=== PATIENT | male | born 1990 | race Caucasian/White ===

== ENCOUNTER 2017-01-11 14:25 | Emergency (ER) | payer MEDICAID ==
[2017-01-11] MEDS ORDERED: IBUPROFEN 800 MG TABLET PO ONE (15:27)
--- NOTE | 2017-01-11 15:27 | ER Document Report ---
ED Neck/Back Problem - General Chief Complaint: Back Pain Stated Complaint: BACK,NECK PAIN Time Seen by Provider: 01/11/17 15:02 Mode of Arrival: Ambulatory Information source: Patient Notes: 26-year-old male presents to ED for numbing of his left arm. She has a history of back surgery to his neck for bulging disc states he had some activities done did not have any fusions done states she also has pain in his lower back states he has a 30 pound child that he picked up and down. TRAVEL OUTSIDE OF THE [place] IN LAST 30 DAYS: No - HPI Onset: Last week Where: Home Onset: Cannot confirm Timing: Waxing and waning Quality of pain: Sharp Severity: Moderate Pain Level: 3 Context: Lifting, Turning Recent injury: Possibly Associated symptoms: Numbness/tingling - Numbness to the left arm states she had the same numbness before he had his surgery to his cervical spine. States she is not called his doctor has not followed up with the doctor., Lower back pain, Other - Pain neck Exacerbated by: Movement of neck Relieved by: Nothing Similar symptoms previously: Yes Recently seen / treated by doctor: No - Related Data Allergies/Adverse Reactions: No Known Allergies Allergy (Verified 01/11/17 14:29) Past Medical History - General Information source: Patient - Social History Smoking Status: Current Every Day Smoker Cigarette use (# per day): Yes - Pack per day Chew tobacco use (# tins/day): No Smoking Education Provided: Yes - Less than 2 minute Frequency of alcohol use: None Drug Abuse: Marijuana 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 Lives with: Family Family History: Reviewed & Not Pertinent Patient has suicidal ideation: No Patient has homicidal ideation: No - Past Medical History Cardiac Medical History: Reports: None Pulmonary Medical History: Reports: None EENT Medical History: Reports: None Neurological Medical History: Reports: None Endocrine Medical History: Reports: None Renal/ Medical History: Reports: None GI Medical History: Reports: Hx Diverticulitis Musculoskeltal Medical History: Reports Hx Arthritis, Reports Hx Musculoskeletal Deformity, Reports Hx Musculoskeletal Trauma Skin Medical History: Reports None Psychiatric Medical History: Reports: None Traumatic Medical History: Reports: None Infectious Medical History: Reports: None Past Surgical History: Reports: Hx Appendectomy, Hx Oral Surgery, Hx Orthopedic Surgery - cervical disectomy - Immunizations Immunizations up to date: Yes Hx Diphtheria, Pertussis, Tetanus Vaccination: Yes Review of Systems - Review of Systems Constitutional: No symptoms reported EENT: No symptoms reported Cardiovascular: No symptoms reported Respiratory: No symptoms reported Gastrointestinal: No symptoms reported Genitourinary: No symptoms reported Male Genitourinary: No symptoms reported Musculoskeletal: Back pain, Neck pain Skin: No symptoms reported Hematologic/Lymphatic: No symptoms reported Neurological/Psychological: No symptoms reported -: Yes All other systems reviewed and negative Physical Exam - Vital signs Vitals: Temp Pulse Resp BP Pulse Ox 98.3 F 99 16 132/85 H 98 01/11/17 14:30 01/11/17 14:30 01/11/17 14:30 01/11/17 14:30 01/11/17 14:30 Interpretation: Normal - General General appearance: Appears well, Alert - HEENT Head: Normocephalic, Atraumatic Eyes: Normal Pupils: PERRL Ears: Normal External canal: Normal Tympanic membrane: Normal Sinus: Normal Nasal: Normal Mouth/Lips: Normal Mucous membranes: Normal Pharynx: Normal Neck: Normal - Respiratory Respiratory status: No respiratory distress Chest status: Nontender Breath sounds: Normal Chest palpation: Normal - Cardiovascular Rhythm: Regular Heart sounds: Normal auscultation Murmur: No - Abdominal Inspection: Normal Distension: No distension Bowel sounds: Normal Tenderness: Nontender Organomegaly: No organomegaly - Back Back: Normal, Tender, Vertebra tenderness. No: Deformity/step-off, CVA tenderness, Scars, Scoliosis, Wounds - Extremities General upper extremity: Normal inspection, Nontender, Normal color, Normal ROM , Normal temperature General lower extremity: Normal inspection, Nontender, Normal color, Normal ROM , Normal temperature, Normal weight bearing. 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 Patient instructed to call his doctor today or tomorrow and schedule a follow-up appointment for his neck pain. Patient treated with ibuprofen and discharged home with a CD. - Vital Signs Vital signs: Temp Pulse Resp BP Pulse Ox 98.0 F 81 16 127/89 H 98 01/11/17 16:59 01/11/17 16:59 01/11/17 16:59 01/11/17 16:59 01/11/17 16:59 - Diagnostic Test Radiology reviewed: Image reviewed, Reports reviewed Discharge - Discharge Clinical Impression: Neck pain Low back pain Qualifiers: Chronicity: unspecified Back pain laterality: unspecified Sciatica presence: without sciatica Qualified Code(s): M54.5 - Low back pain Condition: Stable Disposition: HOME, SELF-CARE Instructions: Use of Xyso-Nbk-Tobpvwd Ibuprofen ([facility]) Additional Instructions: NECK INJURY (CERVICAL STRAIN): You have a neck strain. This is an injury to the muscles and ligaments in the neck. There is no evidence of a fracture of the neck bones. Also, no injury to the spinal cord or nerve roots was detected. Usually, stiffness and pain INCREASE for the first 24-48 hours after the injury. The pain will gradually resolve and the neck will become more mobile. Most patients are back at work or school within a few days. Typically, complete healing takes about two or three weeks. The usual initial treatment is rest and cold packs. A neck collar may be placed to keep the muscles of the neck at rest. Antiinflammatory and muscle relaxing medication are often used to reduce the spasm and irritation. You should call the doctor, or go to the hospital, if you develop numbness or weakness in any extremity, problems with your bladder or bowel, or pain radiating down the arms. MUSCLE STRAIN: You have strained a muscle -- torn the fibers within the muscle. This often occurs with strenuous exertion, or during an injury that suddenly stretches the muscle. The seriousness of a strain varies. Some strains heal within days, others cause problems for months. X-rays cannot show a muscle strain. X-rays are taken only if symptoms suggest that a fracture could be present. The usual treatment of a muscle strain is rest and ice packs. Sometimes, a sling, splint, or crutches may be necessary to rest the muscle. The muscle can be used again once pain subsides. Severe strains require a special exercise and stretching program to prevent permanent stiffness and disability. Your doctor will advise you if this will be necessary. Call the doctor immediately if pain or swelling becomes severe, or if numbness or discoloration develop. LOW BACK PAIN: Three out of every four people will have an episode of disabling back pain during their lifetime. Most commonly the pain is due to straining of the muscles and ligaments in the low back. Usual treatment includes: (1) Rest on a firm surface. Avoid lying on your stomach. (2) Ice pack the painful area. After a few days, gentle heat may be used intermittently to relax the area, or ice packs can be continued. (3) Medication may be needed -- muscle relaxers and antiinflammatory medicines are commonly used. (4) As the back improves, exercises are prescribed to strengthen the back and abdominal muscles. Your doctor will advise you on the proper care for your back at each stage in your recovery. You may be better in a few days -- or healing may take several weeks. If new symptoms of a "herniated disc" (radiation of pain, numbness, or tingling down the back of the leg or weakness in the leg) occur, you should be re-examined. Further testing may be necessary. USE OF TYLENOL (ACETAMINOPHEN): Acetaminophen may be taken for pain relief or fever control. It's much safer than aspirin, offering a wider range of "safe" dosages. It is safe during . Some brand names are Tylenol, Panadol, Datril, Anacin 3, Tempra, and Liquiprin. Acetaminophen can be repeated every four hours. The following are maximum recommended dosages: WEIGHT Dose Drops Elixir Chewable( 80mg) (LBS.) drprs=droppers tsp=teaspoon 6 40 mg 0.4 ml (1/2) 6-11 80 mg 0.8 ml (full) tsp 1 tab 12-16 120 mg 1 1/2 drprs 3/4 tsp 1 1/2 tabs 17-23 160 mg 2 drprs 1 tsp 2 tabs 24-30 240 mg 3 drprs 1 1/2 tsp 3 tabs 30-35 320 mg 2 tsp 4 tabs 36-41 360 mg 2 1/4 tsp 4 1/2 tabs 42-47 400 mg 2 1/2 tsp 5 tabs 48-53 480 mg 3 tsp 6 tabs 54-59 520 mg 3 1/4 tsp 6 1/2 tabs 60-64 560 mg 3 1/2 tsp 7 tabs 65-70 600 mg 3 3/4 tsp 7 1/2 tabs 71-76 640 mg 4 tsp 8 tabs 77-82 720 mg 4 1/2 tsp 9 tabs 83-88 800 mg 5 tsp 10 tabs >89 pounds or adults 650 mg to 900 mg Acetaminophen can be repeated every four hours. Maximum dose not to exceed 4000 mg a day. These maximum recommended dosages are slightly higher than the dosages written on the product container, but these dosages are very safe and below the toxic dosage for acetaminophen. ICE PACKS: Apply ice packs frequently against the painful area. Many different schedules are recommended, such as "20 minutes on, 20 minutes off" or "one hour ice, two hours rest." If you need to work, you may need to go longer between ice treatments. You should plan to have the area ice packed AT LEAST one fourth of the time. The ice should be applied over the wrap, tape, or splint, or over a layer of cloth -- not directly against the skin. Some ice bags have a built-in cloth and can be put directly on the skin. WARM PACKS: After approximately two days, apply gentle heat (such as a heating pad or hot water bottle) for about 20 to 30 minutes about every two hours -- at least four times daily. Warmth and elevation will help you make a more rapid recovery , and will ease the pain considerably. Do not use HOT heat, and never apply heat for longer than 30 minutes. The continuous heat can invisibly damage skin and muscles -- even when no burn is seen on the surface. Damaged muscles can make you MORE sore. FOLLOW-UP CARE: If you have been referred to a physician for follow-up care, call the physician s office for an appointment as you were instructed or within the next two days. If you experience worsening or a significant change in your symptoms, notify the physician immediately or return to the Emergency Department at any time for re-evaluation. Forms: Smoking Cessation Education, Return to Work
--- NOTE | 2017-01-11 16:02 | RADIOLOGY REPORT (SQ) ---
EXAM DESCRIPTION: CT CERVICAL SPINE WITHOUT COMPLETED DATE/TIME: 01/11/2017 3:45 pm REASON FOR STUDY: neck and low back pain COMPARISON: None. TECHNIQUE: Axial images acquired through the cervical spine without intravenous contrast. Images re viewed with lung, soft tissue and bone windows. Reconstructed coronal and sagittal MPR images review ed. Images stored on PACS. All CT scanners at this facility use dose modulation, iterative reconstruction, and/or weight based d osing when appropriate to reduce radiation dose to as low as reasonably achievable (ALARA). [facility]: Dose Right [facility]: CareDose [facility]: Dose Right [facility]: Teradose 4D [facility]: Telisma RADIATION DOSE: mGy. LIMITATIONS: Study is limited due to artifact related to anterior orthopedic hardware extending from the C4 to the C6 level. FINDINGS: ALIGNMENT: Anatomic. MINERALIZATION: Normal. VERTEBRAL BODIES: No fractures or dislocation. DISCS: No significant disc disease. FACETS, LATERAL MASSES, POSTERIOR ELEMENTS: No fractures. No dislocation. No acute findings. HARDWARE: An anterior orthopedic plate transfixed by orthopedic screws is identified extending from t he C4 to the C6 level P VISUALIZED RIBS: No fractures. LUNG APICES AND SOFT TISSUES: No significant or acute findings. OTHER: No other significant finding. IMPRESSION: Postsurgical changes as noted above. No other significant findings. TECHNICAL DOCUMENTATION: JOB ID: [id number] Quality ID # [id number]: Final reports with documentation of one or more dose reduction techniques (e.g., Au tomated exposure control, adjustment of the mA and/or kV according to patient size, use of iterative reconstruction technique) 2010 [employer]- All Rights Reserved
[2017-01-11 16:07] LABS: APPEARANCE,URINE CLEAR; BILIRUBIN,URINE NEGATIVE (NEGATIVE); GLUCOSE, URINE NEGATIVE (NEGATIVE); KETONES,URINE NEGATIVE (NEGATIVE); LEUKOCYTE ESTERASE,URINE NEGATIVE (NEGATIVE); NITRITE,URINE NEGATIVE (NEGATIVE); PROTEIN,URINE NEGATIVE (NEGATIVE); URINE SPECIFIC GRAVITY 1.028; UROBILINOGEN,URINE NEGATIVE mg/dL (<2.0)
--- NOTE | 2017-01-11 16:28 | RADIOLOGY REPORT (SQ) ---
EXAM DESCRIPTION: L SPINE WHOLE COMPLETED DATE/TIME: 01/11/2017 4:05 pm REASON FOR STUDY: neck and low back pain COMPARISON: None. NUMBER OF VIEWS: Five views including obliques. TECHNIQUE: AP, lateral, oblique, and sacral radiographic images acquired of the lumbar spine. LIMITATIONS: None. FINDINGS: MINERALIZATION: Normal. SEGMENTATION: Normal. No transitional anatomy. ALIGNMENT: Normal. VERTEBRAE: Maintained height. No fracture or worrisome bone lesion. DISCS: Preserved height. No significant osteophytes or end plate irregularity. POSTERIOR ELEMENTS: Pedicles and facets are intact. No pars defect or posterior arch defects. HARDWARE: None in the spine. PARASPINAL SOFT TISSUES: Normal. PELVIS: Intact as visualized. No fractures or worrisome bone lesions. SI joints intact. OTHER: No other significant finding. IMPRESSION: No significant vertebral compression or disc space reduction is seen. No other signific ant findings. TECHNICAL DOCUMENTATION: JOB ID: [id number] [employer]- All Rights Reserved
[2017-01-11 17:02] VITALS: BP 127/89
== END 2017-01-11 17:00 | disposition home or self-care (01) ==
LOC: ER 14:25
DX: M54.2 Cervicalgia (principal); M54.5 Low back pain; M54.9 Dorsalgia, unspecified; Z98.890 Other specified postprocedural states; F17.210 Nicotine dependence, cigarettes, uncomplicated
CPT/HCPCS: 99284; 81001; 72110; 72125; J3490

== ENCOUNTER 2017-12-14 00:06 | Emergency (ER) | payer SELFPAY ==
[2017-12-14 00:29] VITALS: BP 115/98
[2017-12-14] MEDS ORDERED: HYDROCODONE/ACETAMINOPHEN 5-325 MG (6 TAB/ER DISP) PO PRN (00:53)
[2017-12-14] MEDS ORDERED: PENICILLIN V POTASSIUM 500 MG TABLET PO ONE (00:53)
--- NOTE | 2017-12-14 00:56 | ER Document Report ---
ED General - General Chief Complaint: Toothache Stated Complaint: MOUTH PAIN Time Seen by Provider: 12/14/17 00:45 Mode of Arrival: Ambulatory Information source: Patient Notes: 27-year-old male patient with complaints of dental pain to his right upper jaw x5 days. Patient has a long history of multiple caries. Patient denies any other past medical or surgical history. TRAVEL OUTSIDE OF THE [place] IN LAST 30 DAYS: No - Related Data Allergies/Adverse Reactions: No Known Allergies Allergy (Verified 01/11/17 14:29) Past Medical History - General Information source: Patient - Social History Smoking Status: Current Every Day Smoker Frequency of alcohol use: None Drug Abuse: None Lives with: Alone Family History: Reviewed & Not Pertinent Renal/ Medical History: Denies: Hx Peritoneal Dialysis GI Medical History: Reports: Hx Diverticulitis Musculoskeltal Medical History: Reports Hx Arthritis, Reports Hx Musculoskeletal Deformity, Reports Hx Musculoskeletal Trauma Past Surgical History: Reports: Hx Appendectomy, Hx Bowel Surgery, Hx Oral Surgery, Hx Orthopedic Surgery - cervical disectomy - Immunizations Immunizations up to date: Yes Hx Diphtheria, Pertussis, Tetanus Vaccination: Yes Review of Systems - Review of Systems Constitutional: No symptoms reported EENT: See HPI Cardiovascular: No symptoms reported Respiratory: No symptoms reported Gastrointestinal: No symptoms reported Genitourinary: No symptoms reported Male Genitourinary: No symptoms reported Musculoskeletal: No symptoms reported Skin: No symptoms reported Hematologic/Lymphatic: No symptoms reported Neurological/Psychological: No symptoms reported Physical Exam - Vital signs Vitals: Temp Pulse Resp BP Pulse Ox 98.1 F 87 16 147/76 H 95 12/14/17 00:14 12/14/17 00:14 12/14/17 00:14 12/14/17 00:12/14/17 00:14 - Notes Notes: PHYSICAL EXAMINATION: GENERAL: Well-appearing, well-nourished and in no acute distress. HEAD: Atraumatic, normocephalic. EYES: Pupils equal round and reactive to light, extraocular movements intact, sclera anicteric, conjunctiva are normal. ENT: Nares patent, oropharynx clear without exudates. Moist mucous membranes. Multiple missing teeth, multiple dental carries. Redness and swelling to right upper jaw line. No abscess noted. NECK: Normal range of motion, supple without lymphadenopathy LUNGS: Breath sounds clear to auscultation bilaterally and equal. No wheezes rales or rhonchi. HEART: Regular rate and rhythm without murmurs PSYCH: Normal mood, normal affect. SKIN: Warm, Dry, normal turgor, no rashes or lesions noted. Course - Re-evaluation Re-evalutation: Otherwise healthy 27-year-old male with dental infection on exam. Will start patient on penicillin VK and [facility]. - Vital Signs Vital signs: Temp Pulse Resp BP Pulse Ox 98.1 F 87 16 115/98 H 95 12/14/17 00:14 12/14/17 00:14 12/14/17 00:14 12/14/17 00:28 12/14/17 00:14 Discharge - Discharge Clinical Impression: Toothache Condition: Stable Disposition: HOME, SELF-CARE Additional Instructions: Toothache Your pain is due to dental decay. The tooth must be repaired in order for you to feel better. You will, therefore, be referred to a dentist. Severe swelling or drainage around a tooth usually means a deep dental abscess. This also requires evaluation and treatment by the dentist, but antibiotics may be prescribed while awaiting dental treatment. You should be rechecked immediately if you develop major swelling of the face, increasing pain, a lump in the jaw or gums, headache, or fever. Penicillin VK You have been given a prescription for Penicillin VK. Your physician has determined that this is the best antibiotic for your condition. Pen VK can be taken with meals, however more of the antibiotic gets into the bloodstream if it's taken on an empty stomach. Penicillin usually has no side effects. However, allergy to penicillins is common. If you have had an allergic reaction to any drug of the penicillin family, you should never take any other penicillin. Notify your doctor at once if you develop hives, itching, swelling, faintness, or shortness of breath. Oral Narcotic Medication You have been given a prescription for pain control. This medication is a narcotic. It's best taken with food, as nausea can result if taken on an empty stomach. Don't operate machinery or drive within six hours of taking this medication. Do not combine this medicine with alcohol, or with any medication which can cause sedation (such as cold tablets or sleeping pills) unless you get permission from the physician. Narcotics tend to cause constipation. If possible, drink plenty of fluids and eat a diet high in fiber and fruits. Please take medications as prescribed. Please complete all of the antibiotics even if your pain goes away. Please supplement with ibuprofen as this should significantly help decrease the pain and inflammation around your teeth and gumline. I am including contact information for the [facility] which is a new clinic here in [place] which may be able to help you. Please return to the emergency department if you develop fever. Prescriptions: Penicillin V Potassium [Penicillin Vk 500 mg Tablet] 500 mg PO BID #20 tablet Referrals: [facility] [Provider Group] - Follow up as needed
== END 2017-12-14 01:11 | disposition home or self-care (01) ==
LOC: ER 00:06
DX: K08.89 Other specified disorders of teeth and supporting structures (principal); R22.0 Localized swelling, mass and lump, head; K02.9 Dental caries, unspecified; F17.200 Nicotine dependence, unspecified, uncomplicated
CPT/HCPCS: 99282

== ENCOUNTER 2017-12-18 03:37 | Emergency (ER) | payer SELFPAY ==
[2017-12-18 03:48] VITALS: BP 145/106
[2017-12-18] MEDS: ACETAMINOPHEN 325 MG TABLET PO ONE (05:30)
[2017-12-18] MEDS ORDERED: OXYCODONE-ACETAMINOPHEN 5-325 MG TABLET PO ONE ×2 (05:48→05:58)
--- NOTE | 2017-12-18 05:54 | ER Document Report ---
ED Oral Problem - General Chief Complaint: Mouth Problem Stated Complaint: MOUTH PAIN Time Seen by Provider: 12/18/17 05:39 Mode of Arrival: Ambulatory Information source: Patient Notes: 27-year-old male patient presents with complaint of dental pain. Patient with multiple dental caries to his right upper teeth. Patient was seen here recently for same. Patient reports that he has an appointment set up for Sunday which is 6 days from now [facility]. Patient denies any fever, nausea, vomiting or chills. TRAVEL OUTSIDE OF THE [place] IN LAST 30 DAYS: No - Related Data Allergies/Adverse Reactions: No Known Allergies Allergy (Verified 01/11/17 14:29) Past Medical History - General Information source: Patient - Social History Smoking Status: Never Smoker Frequency of alcohol use: None Drug Abuse: None Family History: Reviewed & Not Pertinent Renal/ Medical History: Denies: Hx Peritoneal Dialysis GI Medical History: Reports: Hx Diverticulitis Musculoskeltal Medical History: Reports Hx Arthritis, Reports Hx Musculoskeletal Deformity, Reports Hx Musculoskeletal Trauma Past Surgical History: Reports: Hx Appendectomy, Hx Bowel Surgery, Hx Oral Surgery, Hx Orthopedic Surgery - cervical disectomy - Immunizations Immunizations up to date: Yes Hx Diphtheria, Pertussis, Tetanus Vaccination: Yes Review of Systems - Review of Systems Constitutional: No symptoms reported EENT: Dental problem Cardiovascular: No symptoms reported Respiratory: No symptoms reported Gastrointestinal: No symptoms reported Genitourinary: No symptoms reported Male Genitourinary: No symptoms reported Musculoskeletal: No symptoms reported Skin: No symptoms reported Hematologic/Lymphatic: No symptoms reported Neurological/Psychological: No symptoms reported Physical Exam - Vital signs Vitals: Temp Pulse Resp BP Pulse Ox 97.7 F 67 16 145/106 H 94 12/18/17 03:41 12/18/17 03:41 12/18/17 03:41 12/18/17 03:41 12/18/17 03:41 - Notes Notes: PHYSICAL EXAMINATION: HEAD: Atraumatic, normocephalic. EYES: Pupils equal round and reactive to light, extraocular movements intact, sclera anicteric, conjunctiva are normal. ENT: Nares patent, oropharynx clear without exudates. Moist mucous membranes. Dental caries to right upper teeth. NECK: Normal range of motion, supple without lymphadenopathy LUNGS: Breath sounds clear to auscultation bilaterally and equal. No wheezes rales or rhonchi. HEART: Regular rate and rhythm without murmurs Musculoskeletal: Normal range of motion. No cyanosis. SKIN: Warm, Dry, normal turgor, no rashes or lesions noted. Course - Re-evaluation Re-evalutation: 27-year-old male patient who presents with complaints of right upper dental pain. Patient was seen here a few days ago for the same complaint. Patient reports he did call the [facility] and has an appointment scheduled for 6 days from now. Patient does appear to be in a significant amount of pain. Will treat patient with pain medications. Did explain to patient that we would not be giving him pain medications again for the same complaint. Patient verbalized understanding and is agreeable to plan of care. - Vital Signs Vital signs: Temp Pulse Resp BP Pulse Ox 97.7 F 67 16 145/106 H 94 12/18/17 03:41 12/18/17 03:41 12/18/17 03:41 12/18/17 03:41 12/18/17 03:41 Discharge - Discharge Clinical Impression: Pain due to dental caries Condition: Stable Disposition: HOME, SELF-CARE Additional Instructions: Dental pain. Please keep your appointment with the [facility] clinic on Sunday. Take the pain medications as prescribed. Continue the antibiotics. We will not be able to prescribe pain medications for this dental pain again. Prescriptions: Hydrocodone Bit/Acetaminophen [Hydrocodon-Acetaminophen 5-325] 1 each PO Q6 PRN #10 tablet PRN Reason: Referrals: LOCALMD,NO [NO LOCAL MD] - Follow up as needed
== END 2017-12-18 06:17 | disposition home or self-care (01) ==
LOC: ER 03:37
DX: K02.9 Dental caries, unspecified (principal); K13.79 Other lesions of oral mucosa
CPT/HCPCS: 99283

== ENCOUNTER 2018-03-28 06:17 | Emergency (ER) | payer SELFPAY ==
[2018-03-28 06:30] VITALS: BP 136/88
[2018-03-28] MEDS ORDERED: KETOROLAC TROMETHAMINE 60 MG/2 ML SDV IM ONE (07:03)
[2018-03-28] MEDS ORDERED: PENICILLIN V POTASSIUM 500 MG TABLET PO ONE (07:03)
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
--- NOTE | 2018-03-28 07:25 | RADIOLOGY REPORT (SQ) ---
EXAM DESCRIPTION: XR CHEST 1 VIEW COMPLETED DATE/TME: 03/28/2018 06:29 CLINICAL HISTORY: 28 years, Male, chest pain COMPARISON: None. NUMBER OF VIEWS: One TECHNIQUE: AP view the chest LIMITATIONS: None. FINDINGS: Lungs are clear. The heart is normal in size. There is no pneumothorax or pleural effusion. The bones are unremarkable IMPRESSION: No acute cardiopulmonary abnormality 2010 [employer]- All Rights Reserved
--- NOTE | 2018-03-28 14:37 | EKG REPORT ---
SEVERITY:- NORMAL ECG - SINUS RHYTHM : Confirmed by: Vera Mercedes MD 28-Mar-2018 14:36:30
== END 2018-03-28 07:46 | disposition home or self-care (01) ==
LOC: ER 06:17
DX: K04.7 Periapical abscess without sinus (principal); R07.9 Chest pain, unspecified; K02.9 Dental caries, unspecified; K08.89 Other specified disorders of teeth and supporting structures; R20.2 Paresthesia of skin; F17.200 Nicotine dependence, unspecified, uncomplicated
CPT/HCPCS: 93005; 99285; 96372; 71045; 93010; J1885

== ENCOUNTER 2018-04-24 21:42 | Emergency (ER) | payer SELFPAY ==
[2018-04-24] MEDS ORDERED: LIDOCAINE 2% VISCOUS SOLN 20 ML UDCUP PO ONE (22:56)
[2018-04-24] MEDS ORDERED: ACETAMINOPHEN 325 MG TABLET PO ONE (23:37)
[2018-04-24] MEDS ORDERED: IBUPROFEN 800 MG TABLET PO ONE (23:37)
[2018-04-24 23:49] VITALS: BP 127/95
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
== END 2018-04-24 23:50 | disposition home or self-care (01) ==
LOC: ER 21:42
DX: K02.9 Dental caries, unspecified (principal); K08.89 Other specified disorders of teeth and supporting structures; R68.84 Jaw pain; F17.210 Nicotine dependence, cigarettes, uncomplicated
CPT/HCPCS: 99282; J3490

== ENCOUNTER 2018-12-08 13:15 | Emergency (ER) | payer SELFPAY ==
[2018-12-08 14:00] VITALS: BP 126/77
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
== END 2018-12-08 14:20 | disposition home or self-care (01) ==
LOC: ER 13:15
DX: S82.91XE Unspecified fracture of right lower leg, subsequent encounter for open fracture type I or II with routine healing (principal); W34.00XD Accidental discharge from unspecified firearms or gun, subsequent encounter
CPT/HCPCS: 99282

== ENCOUNTER 2019-01-09 11:10 | Emergency (ER) | payer SELFPAY ==
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
[2019-01-09 12:01] LABS: ABSOLUTE BASOPHILS # (AUTO) 0.1 10^3/uL (0.0-0.2); ABSOLUTE EOSINOPHILS # (AUTO) 0.1 10^3/uL (0.0-0.6); ABSOLUTE LYMPHOCYTES (AUTO) 2.6 10^3/uL (0.5-4.7); ABSOLUTE MONOCYTES (AUTO) 0.8 10^3/uL (0.1-1.4); ABSOLUTE NEUT (AUTO) 9.1 10^3/uL (1.7-8.2); BASOPHILS % (AUTO) 0.8 % (0-2); EOSINOPHILS % (AUTO) 0.9 % (0-6); HEMATOCRIT 43.8 % (37.9-51.0); HEMOGLOBIN 14.9 g/dL (13.5-17.0); LYMPHOCYTES % (AUTO) 20.7 % (13-45); MEAN CORPUSCULAR HEMOGLOBIN 30.9 pg (27.0-33.4); MEAN CORPUSCULAR HGB CONC 33.9 g/dL (32.0-36.0); MEAN CORPUSCULAR VOLUME 91 fl (80-97); MONOCYTES % (AUTO) 6.4 % (3-13); PLATELET COUNT 277 10^3/uL (150-450); RED BLOOD COUNT 4.82 10^6/uL (4.35-5.55); SEGMENTED NEUTROPHILS % (AUTO) 71.2 % (42-78); TOTAL CELLS COUNTED % (AUTO) 100 %; WHITE BLOOD COUNT 12.7 10^3/uL (4.0-10.5)
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
[2019-01-09 14:28] VITALS: BP 123/87
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
== END 2019-01-09 14:05 | disposition home or self-care (01) ==
LOC: ER 11:10
DX: S82.434 Nondisplaced oblique fracture of shaft of right fibula (principal); W34.00XD Accidental discharge from unspecified firearms or gun, subsequent encounter; F17.210 Nicotine dependence, cigarettes, uncomplicated
CPT/HCPCS: 36415; 85025; 99283

== ENCOUNTER 2020-07-26 09:05 | Emergency (ER) | payer SELFPAY ==
[2020-07-26 09:16] VITALS: BP 130/92
--- NOTE | 2020-07-26 10:29 | RADIOLOGY REPORT (SQ) ---
EXAM DESCRIPTION: ANKLE LEFT COMPLETE IMAGES COMPLETED DATE/TIME: 07/26/2020 10:17 am REASON FOR STUDY: L ankle injury COMPARISON: None. NUMBER OF VIEWS: Three views. TECHNIQUE: AP, lateral, and oblique radiographic images acquired of the left ankle. LIMITATIONS: None. FINDINGS: MINERALIZATION: Normal. BONES: The osseous fragments inferior to the lateral malleolus on the oblique view could represent av ulsed fracture fragments. The ankle mortise and talar dome are intact. JOINTS: As above. SOFT TISSUES: Soft tissue swelling around the lateral malleolus. OTHER: No other findings. IMPRESSION: Osseous fragments inferior to the lateral malleolus (on the oblique view) associated wit h soft tissue swelling. Correlate clinically to exclude an avulsion fracture of the lateral malleolu s. TECHNICAL DOCUMENTATION: JOB ID: [id number] [employer]- All Rights Reserved Reading location - IP/workstation name: [email or web address]
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
== END 2020-07-26 11:10 | disposition home or self-care (01) ==
LOC: ER 09:05
DX: S82.892A Other fracture of left lower leg, initial encounter for closed fracture (principal); M25.572 Pain in left ankle and joints of left foot; M79.605 Pain in left leg; X50.1XXA Overexertion from prolonged static or awkward postures, initial encounter; F17.200 Nicotine dependence, unspecified, uncomplicated
CPT/HCPCS: 99284